=== PATIENT | female | born 1945 | race Caucasian/White ===

== ENCOUNTER 2017-09-16 08:00 | Outpatient (RCR) | payer MEDICARE, OTHER | END 2017-09-19 | LOC: OT 08:00 | PROVIDERS: ATTEND Surgery Surgery of the Hand | DX: S52.531D Colles' fracture of right radius, subsequent encounter for closed fracture with routine healing (principal); M25.531 Pain in right wrist; M25.631 Stiffness of right wrist, not elsewhere classified; R53.1 Weakness | CPT/HCPCS: 97010; 97022 ×5; 97110 ×7; 97165; G8987; G8988; L3906 ==